=== PATIENT | female | born 1990 | race African-American/Black ===

== ENCOUNTER 2020-08-15 05:56 | Emergency (ER) | payer MEDICAID ==
[~2020-08-15] VITALS: Ht 152.4 cm; Wt 76.0 kg
[2020-08-15] MEDS ORDERED: IBUP-2028 MT (07:49)
[2020-08-15] MEDS ORDERED: T3 PO (07:49)
[2020-08-15] MEDS ORDERED: IBUPROFEN 400MG TABLET PO ONE (08:00)
[2020-08-15 08:14] VITALS: BP 130/80
== END 2020-08-15 08:17 | disposition home or self-care (01) ==
LOC: ER 05:56
DX: M25.571 Pain in right ankle and joints of right foot (principal); X50.1XXA Overexertion from prolonged static or awkward postures, initial encounter; Y93.89 Activity, other specified; Y92.018 Other place in single-family (private) house as the place of occurrence of the external cause
CPT/HCPCS: 73610; 73630; 99284